=== PATIENT | female | born 1935 | race Two or more races ===

== ENCOUNTER 2022-03-28 17:12 | Inpatient (IN) | payer BC ==
[~2022-03-28] VITALS: Ht 162.6 cm; Wt 65.0 kg
[2022-03-28] MEDS ORDERED: FUROSEMIDE 40 MG/4 ML VIAL IV ONE (19:15)
[2022-03-28 20:17] LABS: Basophils # (auto) 0 10 ^3/uL (0-0.2); Basophils % (auto) 0.4 % (0.0-2.0); Eosinophils # (auto) 0.2 10 ^3/uL (0-0.8); Eosinophils % (auto) 2.7 % (0.0-7.0); Hematocrit 40.2 % (36.0-46.0); Hemoglobin 13.4 g/dL (12.2-16.2); Lymphocytes % (auto) 27.4 % (10.0-50.0); Mean Corpuscular Hemoglobin 31.1 pg (28.0-32.0); Mean Corpuscular Hgb Conc. 33.3 g/dL (32.0-36.0); Mean Corpuscular Volume 93.5 fL (80.0-100.0); Monocytes # (auto) 0.8 10 ^3/uL (0-1.3); Monocytes % (auto) 11.1 % (0.0-12.0); Neutrophils # (auto) 4.2 10 ^3/uL (1.6-8.6); Neutrophils % (auto) 58.4 % (37.0-80.0); White Blood Cell 7.2 10^3/uL (4.4-10.8)
[2022-03-28 20:31] LABS: Albumin 3.5 g/dL (3.4-5.0); Calcium 8.8 mg/dL (8.5-10.1); Magnesium 2.2 mg/dL (1.6-2.6); Potassium 4.5 mmol/L (3.5-5.1)
[2022-03-28 20:36] LABS: BUN/Creatinine Ratio 16.3; Bilirubin, Total 0.8 mg/dL (0.2-1.0); Total Protein 6.8 g/dL (6.4-8.2)
[2022-03-28] MEDS ORDERED: MORPHINE SULFATE INJ 2 MG/ml SYRG IV PRN (22:15)
[2022-03-28] MEDS ORDERED: ACETAMINOPHEN 325 MG TAB PO PRN (22:15)
[2022-03-28] MEDS ORDERED: NITROGLYCERIN 0.4 MG SL TAB SL PRN (22:15)
[2022-03-28] MEDS ORDERED: DOCUSATE SOD 100 MG CAP PO PRN (22:15)
[2022-03-28] MEDS ORDERED: HYDROcodone-ACET 5/325MG TAB PO PRN (22:15)
[2022-03-28] MEDS ORDERED: ONDANSETRON HCL 4 MG/2 ML VIAL IV PRN (22:15)
[2022-03-28] MEDS ORDERED: cefTRIAXone 1GM/50ML D5W 50 ML IV SCH (23:22)
[2022-03-28] MEDS ORDERED: DEXTROSE (50%) 50ML SYRG IV PRN (23:45)
[2022-03-29] MEDS ORDERED: hydrALAZINE HCL 20 MG/ML VL IV PRN
[2022-03-29] MEDS ORDERED: AZITHROMYCIN 500MG/ 250ML 250 ML IV SCH
[2022-03-29] MEDS ORDERED: NIFEdipine ER 30 MG TAB PO SCH
[2022-03-29] MEDS: MEMANTINE HCL 5 MG TAB PO SCH ×2 (00:49→10:07)
[2022-03-29 03:54] LABS: Basophils # (auto) 0 10 ^3/uL (0-0.2); Basophils % (auto) 0.3 % (0.0-2.0); Eosinophils # (auto) 0.2 10 ^3/uL (0-0.8); Eosinophils % (auto) 2.2 % (0.0-7.0); Hematocrit 38.1 % (36.0-46.0); Hemoglobin 12.7 g/dL (12.2-16.2); Lymphocytes # (auto) 2.4 10 ^3/uL (0.4-5.4); Lymphocytes % (auto) 32.4 % (10.0-50.0); Mean Corpuscular Hemoglobin 31.1 pg (28.0-32.0); Mean Corpuscular Hgb Conc. 33.5 g/dL (32.0-36.0); Monocytes # (auto) 0.8 10 ^3/uL (0-1.3); Neutrophils # (auto) 4.2 10 ^3/uL (1.6-8.6); Neutrophils % (auto) 55.1 % (37.0-80.0); Nucleated Red Blood Cells % 0.1 %; Red Blood Cells 4.09 10^6/uL (4.0-5.20); Red Cell Distribution Width 14.3 % (11.8-14.3); White Blood Cell 7.6 10^3/uL (4.4-10.8)
[2022-03-29 03:58] LABS: Calcium 8.7 mg/dL (8.5-10.1); Potassium 4.1 mmol/L (3.5-5.1)
[2022-03-29 04:45] LABS: INR 1.93 (0.9-1.15); Partial Thromboplastin Time 34.7 sec (24.6-33.4)
[2022-03-29] MEDS: InsuLIN REG 1unit/0.01ml Soln (100units/ml) SC SCH ×2 (07:24→12:48)
[2022-03-29] MEDS: ACCU-CHEK COMFORT CURVE STRIP VI SCH ×2 (07:25→11:30)
[2022-03-29] MEDS ORDERED: CITALOPRAM HYDROBR 20 MG TAB PO SCH (10:00)
[2022-03-29] MEDS ORDERED: PANTOPRAZOLE 40 MG/10 ML VIAL INJ IV SCH (10:00)
[2022-03-29] MEDS ORDERED: ENOXAPARIN SOD 30 MG/0.3 ML SYRINGE SC SCH (10:00)
[2022-03-29] MEDS ORDERED: CARVEDILOL 3.125 MG TAB PO SCH (10:00)
[2022-03-29 14:13] VITALS: BP 150/61
[2022-03-29] MEDS ORDERED: CAR3125T PO (15:09)
[2022-03-29] MEDS ORDERED: MEMA1TAB5 PO (15:09)
[2022-03-29] MEDS ORDERED: ATO40T PO (15:11)
[2022-03-29] MEDS ORDERED: NIFE1TAB36 PO (15:18)
[2022-03-29] MEDS ORDERED: CITA-244 PO (15:18)
[2022-03-29] MEDS ORDERED: DIGO0.12 PO (15:18)
[2022-03-29] MEDS ORDERED: WARF3TAB22 PO (15:18)
[2022-03-29] MEDS ORDERED: WARFARIN SODIUM 1 MG TAB PO ONE (17:00)
[2022-03-29] MEDS ORDERED: ATORVASTATIN 20 MG TAB PO SCH (22:00)
== END 2022-03-29 15:45 | disposition home or self-care (01) | DRG 194 ==
LOC: ER 17:12 → TELE 22:17
PROVIDERS: ADMIT Nurse Practitioner Family; ATTEND Internal Medicine
DX: J18.9 Pneumonia, unspecified organism (principal); J44.0 Chronic obstructive pulmonary disease with (acute) lower respiratory infection; I16.0 Hypertensive urgency; E11.9 Type 2 diabetes mellitus without complications; F03.90 Unspecified dementia, unspecified severity, without behavioral disturbance, psychotic disturbance, mood disturbance, and anxiety; I11.0 Hypertensive heart disease with heart failure; I48.0 Paroxysmal atrial fibrillation; I50.9 Heart failure, unspecified; Z90.710 Acquired absence of both cervix and uterus; Z90.49 Acquired absence of other specified parts of digestive tract; Z20.822 Contact with and (suspected) exposure to COVID-19; Z79.84 Long term (current) use of oral hypoglycemic drugs
CPT/HCPCS: 36415; 71045; 80048; 80053; 82962; 83735; 83880; 84484; 85025; 85610; 85730; 87426; 96365; 96367; 96372; 96375; C9113; G0378; J0696; J1815

== ENCOUNTER 2022-05-02 18:47 | Emergency (ER) | payer BC ==
[~2022-05-02] VITALS: Ht 162.6 cm; Wt 63.2 kg
[~2022-05-02 18:47] MED LIST: ATO40T PO; CAR3125T PO; CITA-244 PO; DIGO0.12 PO; MEMA1TAB5 PO; NIFE1TAB36 PO; WARF3TAB22 PO
[2022-05-02 21:25] LABS: Basophils # (auto) 0 10 ^3/uL (0-0.2); Basophils % (auto) 0.5 % (0.0-2.0); Eosinophils # (auto) 0.1 10 ^3/uL (0-0.8); Eosinophils % (auto) 1.7 % (0.0-7.0); Hematocrit 40.4 % (36.0-46.0); Hemoglobin 13.5 g/dL (12.2-16.2); Lymphocytes # (auto) 1.9 10 ^3/uL (0.4-5.4); Lymphocytes % (auto) 23.9 % (10.0-50.0); Mean Corpuscular Hemoglobin 31.2 pg (28.0-32.0); Mean Corpuscular Hgb Conc. 33.5 g/dL (32.0-36.0); Mean Corpuscular Volume 93.2 fL (80.0-100.0); Monocytes # (auto) 0.7 10 ^3/uL (0-1.3); Monocytes % (auto) 8.3 % (0.0-12.0); Neutrophils # (auto) 5.2 10 ^3/uL (1.6-8.6); Neutrophils % (auto) 65.6 % (37.0-80.0); Nucleated Red Blood Cells % 0.1 %; Red Blood Cells 4.33 10^6/uL (4.0-5.20); Red Cell Distribution Width 13.7 % (11.8-14.3); White Blood Cell 7.9 10^3/uL (4.4-10.8)
[2022-05-02 21:41] LABS: Potassium 4.5 mmol/L (3.5-5.1)
[2022-05-02 21:48] LABS: Albumin 3.2 g/dL (3.4-5.0); BUN/Creatinine Ratio 18.8; Bilirubin, Total 0.8 mg/dL (0.2-1.0); Calcium 8.6 mg/dL (8.5-10.1); Magnesium 2.1 mg/dL (1.6-2.6)
[2022-05-02] MEDS ORDERED: SPIRONOLACTONE 25 MG TAB PO ONE (23:45)
[2022-05-02] MEDS ORDERED: FUROSEMIDE 20 MG TAB PO ONE (23:45)
[2022-05-03 05:05] VITALS: BP 162/102
== END 2022-05-03 06:02 | disposition home or self-care (01) ==
LOC: EDBD 18:47 → ER 18:49
DX: S00.03XA Contusion of scalp, initial encounter (principal); E11.65 Type 2 diabetes mellitus with hyperglycemia; G30.0 Alzheimer's disease with early onset; F02.80 Dementia in other diseases classified elsewhere, unspecified severity, without behavioral disturbance, psychotic disturbance, mood disturbance, and anxiety; E11.21 Type 2 diabetes mellitus with diabetic nephropathy; E44.1 Mild protein-calorie malnutrition; I48.20 Chronic atrial fibrillation, unspecified; R41.82 Altered mental status, unspecified; I11.0 Hypertensive heart disease with heart failure; I50.9 Heart failure, unspecified; Z90.49 Acquired absence of other specified parts of digestive tract; Z90.710 Acquired absence of both cervix and uterus; Z68.23 Body mass index [BMI] 23.0-23.9, adult; W18.39XA Other fall on same level, initial encounter; Y93.89 Activity, other specified; Y92.098 Other place in other non-institutional residence as the place of occurrence of the external cause; Y99.8 Other external cause status
CPT/HCPCS: 36415; 70450; 71045; 80053; 83735; 85025; 93005